=== PATIENT | female | born 1955 | race Caucasian/White ===

== ENCOUNTER 2017-10-31 05:35 | Inpatient (IN) | payer MEDICAID ==
[~2017-10-31] VITALS: Ht 121.9 cm; Wt 62.6 kg
[2017-10-31 05:40] VITALS: BP 131/57
--- NOTE | 2017-10-31 05:44 | NUR ---
Patient ambulated to bed 4 with family. RN evaluating patient at bedside.
--- NOTE | 2017-10-31 05:48 | NUR ---
pt came in with c/o abdominal distention and edema to the lower extremeties. pt has bruising on the middle of her back on both right and left side. she also has an open wound on the right leg below the gagnon. pt has a pacemaker. pt stated she had paracentisis done one year ago. family at bedside. . DENIES N/V/D; SKIN IS PINK/WARM/DRY; AAOX4 WITH EVEN AND STEADY GAIT; LUNGS CLEAR BL; HR EVEN AND REGULAR; PT DENIES ANY FEVER, CP, SOB, OR COUGH AT THIS TIME; PATIENT STATES PAIN OF 0/10 AT THIS TIME; VSS; PATIENT POSITIONED FOR COMFORT; HOB ELEVATED; BEDRAILS UP X2; BED DOWN. ER MD MADE AWARE OF PT STATUS.
--- NOTE | 2017-10-31 05:55 | NUR ---
Patient being evaluated by physician at bedside, with orders and carried out
[2017-10-31] MEDS ORDERED: FURO-570 PO (06:35)
[2017-10-31] MEDS ORDERED: POTA8TER12 PO (06:35)
[2017-10-31] MEDS ORDERED: ASPI81CT89 PO (06:35)
[2017-10-31 06:36] LABS: BASOPHILS % (AUTO) 0.3 % (0.0-2.0); EOSINOPHILS # (AUTO) 0.2 K/uL (0-0.4); EOSINOPHILS % (AUTO) 4.1 % (0.0-4.0); HEMATOCRIT 29.7 % (36-48); HEMOGLOBIN 9.8 g/dL (12.0-16.0); LYMPHOCYTES # (AUTO) 0.6 K/uL (2.5-16.5); LYMPHOCYTES % (AUTO) 12.1 % (20.5-51.1); MEAN CORPUSCULAR HEMOGLOBIN 29 pg (27-31); MEAN CORPUSCULAR HGB CONC 33 g/dL (33-37); MEAN CORPUSCULAR VOLUME 87.2 fL (80-94); MONOCYTES # (AUTO) 0.5 K/uL (0.8-1.0); MONOCYTES % (AUTO) 10.4 % (1.7-9.3); NEUTROPHILS # (AUTO) 3.3 K/uL (1.8-7.7); NEUTROPHILS % (AUTO) 73.1 % (42.2-75.2); PLATELET COUNT (AUTO) 131 K/uL (140-450); RED BLOOD CELL COUNT(AUTO) 3.41 MIL/uL (4.20-5.40); RED CELL DISTRIBUTION WIDTH 15.5 % (11.6-13.7); WHITE BLOOD COUNT (AUTO) 4.6 K/uL (4.8-10.8)
--- NOTE | 2017-10-31 06:39 | NUR ---
hydrotechnical specialist at bedside.
[2017-10-31] MEDS ORDERED: ONDANSETRON 4 MG/2 ML VIAL IVP PRN (06:55)
[2017-10-31] MEDS ORDERED: ALBUTEROL 0.083% 2.5 MG/3 ML NEBU IH PRN (06:55)
[2017-10-31] MEDS ORDERED: HYDROmorphone 1 MG/ML AMP IVP PRN (06:55)
[2017-10-31 06:58] LABS: ANION GAP 15.3 (8-16); CARBON DIOXIDE 27.3 mmol/L (21-32); CREATININE 1.6 mg/dL (0.6-1.3); POTASSIUM 4.6 mmol/L (3.5-5.1)
[2017-10-31 07:03] LABS: PROTHROMBIN TIME 11.8 secs (10.8-13.4)
[2017-10-31 07:07] LABS: TOTAL BILIRUBIN 1.1 mg/dL (0.0-1.0)
--- NOTE | 2017-10-31 07:12 | NUR ---
received report from yane guerin.Patient appears to be resting comfortably in bed. Vital Signs within normal limits. Respirations even and unlabored.will continue to monitor.
--- NOTE | 2017-10-31 07:25 | NUR ---
RECEIVED BEDSIDE REPORT FROM ER NURSE. PATIENT IS AWAKE, ALERT AND ORIENTEDX4. VIETNAMESE SPEAKER. NO SIGNS OF DISTRESS ON ROOM AIR. IV ON R AC 22G. SALINE LOCK. CLEAN, DRY AND INTACT. MRSA SWAB IS DONE. VITALS ARE WITHIN NORMAL LIMITS. ALL ADMIT QUESTIONS ANSWERED. BRUISING ON BACK, PATIENT UNSURE FROM WHAT. R WOOD HAS REDNESS. PATIENT AMBULATES WELL. PATIENT HAS ISSUES URINATING, SHE STATES SHE PEES A LITTLE AND FEELS NOT ALL COMES OUT. BED IN LOW POSITION. CALL LIGHT WITHIN REACH. WILL CONTINUE TO MONITOR THE PATIENT. DAUGHTER AT BEDSIDE
--- NOTE | 2017-10-31 07:27 | NUR ---
transferred pt. Pt report given to Sherron junior at [facility] rm [address].
[2017-10-31 07:30] VITALS: BP 125/56
[2017-10-31] MEDS: HYDROcodone/APAP 5/325 MG 1 TAB TAB PO PRN (09:05)
[2017-10-31] MEDS: POTASSIUM CHLORIDE 8 MEQ TABER PO SCH (09:06)
[2017-10-31] MEDS: FUROSEMIDE 40 MG TAB PO SCH (09:06)
--- NOTE | 2017-10-31 09:08 | NUR ---
ULTRASOUND AT BEDSIDE. ADMINISTERED MEDS. PATIENT TOLERATED WELL. ALSO ADMINISTERED PRN NORCO FOR 6/10 ABD PAIN. WILL CONTINUE TO MONITOR THE PATIENT
--- NOTE | 2017-10-31 11:00 | NUR ---
PATIENT IS SLEEPING. NO SIGNS OF DISTRESS. WILL CONTINUE TO MONITOR THE PATIENT
--- NOTE | 2017-10-31 12:50 | NUR ---
ADMINISTERED PRN PAIN MEDS. PATIENT IS CRYING BECAUSE SHE IS VERY EMOTIONAL THAT SHE HAS A LOT OF HEALTH ISSUES BUT NO ANSWERS. SHE HAS SEEN MANY SPECIALIST BUT STATES SHE GETS NO ANSWERS. SHE HAS PROBLEMS WITH HER KIDNEYS, LUNGS, LIVER, STOMACH AND SHE IS VERY OVERWHELMED. WILL CONTINUE TO MONITOR THE PATIENT
--- NOTE | 2017-10-31 14:52 | NUR ---
PATIENT IS SITTING IN BED. NO SIGNS OF DISTRESS ON ROOM AIR. BED IN LOW POSITION. WILL CONTINUE TO MONITOR THE PATIENT
--- NOTE | 2017-10-31 15:57 | NUR ---
PATIENT IS SLEEPING. NO SIGNS OF DISTRESS ON ROOM AIR. BED IN LOW POSITION. CALL LIGHT WITHIN REACH,. WILL CONTINUE TO MONITOR THE PATIENT
[2017-10-31 16:00] VITALS: BP 112/54
--- NOTE | 2017-10-31 17:52 | NUR ---
PATIENT TOLD SHE IS NOT GETTING THE PARACENTESIS TODAY. SHE VERBALIZED UNDERSTANDING. THERE WERE TOO MANY EMERGENCY PROCEDURES THEY WERE NOT ABLE TO FIT HER IN THE SCHEDULE TODAY. PATIENT SITTING IN BED TALKING TO WILD ANIMAL CARETAKER AND DAUGHTER. NO SIGNS OF DISTRESS OR PAIN AT THIS TIME. WILL CONTINUE TO MONITOR THE PATIENT
--- NOTE | 2017-10-31 18:26 | NUR ---
PATIENT IS SLEEPING. NO SIGNS OF DISTRESS ON ROOM AIR. WILL CONTINUE TO MONITOR PATIENT
--- NOTE | 2017-10-31 19:10 | NUR ---
GAVE BEDSIDE REPORT TO AUTOMATION SPECIALIST NURSE. PATIENT IN STABLE CONDITION.
--- NOTE | 2017-10-31 19:20 | NUR ---
RECEIVED FROM AM RN IN BED AWAKE AND IN BED LAYING DOWN. ABLE TO VERBALIZE SIMPLE NEEDS. FAMILY MEMBER IN HERE VISITING. CARE PLANS FOR THE NIGHT DISCUSSED WITH THEM. CALL LIGHT WITH IN REACH. NO SOB. DENIES ANY PAIN AT THIS TIME. IVF SITE TO [facility]22 INTACT AND NO INFILTRATION. DX. OF ASCITES ABDOMINAL . FOR PARACENTESIS ORDERED.
--- NOTE | 2017-10-31 21:00 | NUR ---
FAMILY MEMBER LEFT. PT. NO COMPLAINT. CALL LIGHT WITH IN REACH.
--- NOTE | 2017-10-31 23:27 | NUR ---
SLEEPING. NO COMPLAINTS DONE. CALL LIGHT WITH IN REACH.
[2017-10-31 23:57] VITALS: BP 122/65
--- NOTE | 2017-11-01 02:00 | NUR ---
SLEEPING. NO RESTLESSNESS. CALL LIGHT WITH IN REACH.
--- NOTE | 2017-11-01 04:52 | NUR ---
NO NOTED VOMITING UP TO THIS TIME. SLEEPING WELL. CALL LIGHT WITH IN REACH.
--- NOTE | 2017-11-01 07:14 | NUR ---
ENDORSED TO THE NEXT RN FOR CONTINUITY OF CARE. SLEEPING. WAKES UP EASILY WHEN CALLED BY NAME. A/O X 4.
--- NOTE | 2017-11-01 07:15 | NUR ---
RECEIVED BEDSIDE REPORT FROM [employer] DYNAMICS MANAGER ARCHITECT. PATIENT IS SLEEPING. NO SIGNS OF DISTRESS ON ROOM AIR. SHE AMBULATES. SKIN IS INTACT. R WOOD HAS REDNESS AND BRUISING/SPIDER ANGIOMA ON TUMMY AND BACK. IV ON L AC 22G SALINE LOCK. CLEAN, DRY AND INTACT. WILL CONTINUE TO MONITOR THE PATIENT. BED IN LOW POSITION. CALL LIGHT WITHIN REACH.
[2017-11-01 07:51] LABS: ANION GAP 15.6 (8-16); CARBON DIOXIDE 26.7 mmol/L (21-32); CREATININE 1.9 mg/dL (0.6-1.3); POTASSIUM 4.3 mmol/L (3.5-5.1)
[2017-11-01 07:53] LABS: BASOPHILS % (AUTO) 0.9 % (0.0-2.0); EOSINOPHILS # (AUTO) 0.2 K/uL (0-0.4); EOSINOPHILS % (AUTO) 4.7 % (0.0-4.0); HEMATOCRIT 29.1 % (36-48); HEMOGLOBIN 9.5 g/dL (12.0-16.0); LYMPHOCYTES # (AUTO) 0.6 K/uL (2.5-16.5); LYMPHOCYTES % (AUTO) 14.8 % (20.5-51.1); MEAN CORPUSCULAR HEMOGLOBIN 29 pg (27-31); MEAN CORPUSCULAR HGB CONC 33 g/dL (33-37); MEAN CORPUSCULAR VOLUME 87.6 fL (80-94); MONOCYTES # (AUTO) 0.4 K/uL (0.8-1.0); MONOCYTES % (AUTO) 10.4 % (1.7-9.3); NEUTROPHILS # (AUTO) 2.8 K/uL (1.8-7.7); NEUTROPHILS % (AUTO) 69.2 % (42.2-75.2); PLATELET COUNT (AUTO) 96 K/uL (140-450); RED BLOOD CELL COUNT(AUTO) 3.32 MIL/uL (4.20-5.40); RED CELL DISTRIBUTION WIDTH 15.8 % (11.6-13.7)
[2017-11-01 08:00] VITALS: BP 119/58
--- NOTE | 2017-11-01 08:56 | NUR ---
PATIENT IS AWAKE. COMPLAINING THAT SHE HAS NOT BEEN ABLE TO PEE SINCE YESTERDAY. WILL TELL DR WOOD. BUT PATIENT HAS CHRONIC KIDNEY ISSUES. WILL CONTINUE TO MONITOR THE PATIENT. CALLED US TO SEE WHEN PARACENTESIS WILL BE DONE. THEY SAID THEY ARE BUSY AND WILL CALL ME BACK
[2017-11-01] MEDS: FUROSEMIDE 40 MG TAB PO SCH (10:08)
[2017-11-01] MEDS: HYDROcodone/APAP 5/325 MG 1 TAB TAB PO PRN ×2 (10:08→18:53)
[2017-11-01] MEDS: POTASSIUM CHLORIDE 8 MEQ TABER PO SCH (10:08)
--- NOTE | 2017-11-01 10:10 | NUR ---
ADMINISTERED MEDS AND PRN PAIN MED. PATIENT TOLERATED WELL. WILL CONTINUE TO MONITOR THE PATIENT
[2017-11-01 11:16] LABS: PROTHROMBIN TIME 11.7 secs (10.8-13.4)
--- NOTE | 2017-11-01 12:00 | NUR ---
PER TECHNICAL INFORMATION SPECIALIST. PARACENTESIS WILL NOT BE DONE D/T IN [facility]ORE MARK[facility]ER SAID THEY HAVE URGENT CASES. THEY SAID IT WILL BE DONE TOMORROW
--- NOTE | 2017-11-01 13:22 | NUR ---
PATIENT IS SLEEPING. NO SIGNS OF DISTRESS. WILL CONTINUE TO MONITOR THE PATIENT.
[2017-11-01] MEDS ORDERED: DEXT 5% /NACL 0.9% 1,000 ML IV SCH (13:55)
--- NOTE | 2017-11-01 15:00 | NUR ---
PATIENT WITH FAMILY AT BEDSIDE. ENJOYING CONVERSATIONS. DAUGHTER AT BEDSIDE MASSAGING HER FEET. WILL CONTINUE TO MONITOR THE PATIENT. NO SIGNS OF DISTRESS
[2017-11-01 16:00] VITALS: BP 107/63
--- NOTE | 2017-11-01 17:00 | NUR ---
PATIENT STILL ENJOYING TIME W DAUGHTER AND GRAND DAUGHTER. WILL CONTINUE TO MONITOR THE PATIENT, NO COMPLAINTS AT THIS TIME.
--- NOTE | 2017-11-01 18:37 | NUR ---
PATIENT COMPLAINING OF CONSTIPATION. DR MEEK SAID OK TO GIVE MIRALAX, WAITING FOR PHARMACY TO VERIFY.
--- NOTE | 2017-11-01 19:00 | NUR ---
GAVE BEDSIDE REPORT TO SHIPWRIGHT APPRENTICE NURSE. PATIENT IN STABLE CONDITION. Addendum: 11/01/17 at 1922 by Sherron Brewer RN ENDORSED PAIN REASSESSMENT TO SHIPWRIGHT APPRENTICE NURSE
[2017-11-01] MEDS: POLYETHYLENE GLYCOL 17 GM/PKT PO SCH (19:28)
--- NOTE | 2017-11-01 19:30 | NUR ---
ADMINISTERED NEEDED DOSE FOR MIRALAX. PATIENT TOLERATED WELL. REMOVED YESTERDAYS DOSE FROM [facility] BECAUSE THEY DID NOT HAVE TODAYS DOSE.
--- NOTE | 2017-11-01 19:31 | NUR ---
RECEIVED PATIENT AWAKE LYING ON BED. PATIENT FRENCH SPEAKING ,AA0X4. PATIENT WAS AMBULATORY, BED IN LOW POSITION. EXPLAINED TO PATIENT THE PLAN OF CARE THROUGH PHARMACY OPERATIONS SPECIALIST. CALL LIGHT WITHIN REACH. WILL CONTINUE TO MONITOR.
--- NOTE | 2017-11-01 21:00 | NUR ---
V/S TAKEN AND RECORDED. MEDICATION GIVEN ORDERED.ENCOURAGED PATIENT TO ELEVATE HER LEGS AND VERBALIZED UNDERSTANDING. NO S/S OF DISTRESS NOTED AT THIS TIME.
[2017-11-01] MEDS: FUROSEMIDE 20 MG/2 ML VIAL IVP SCH (21:09)
--- NOTE | 2017-11-01 23:55 | NUR ---
EXPLAINED TO PATIENT THAT PROCEDURE NEED TO BE DONE TOMORROW .NPO POST MIDNIGHT AND VERBALIZED UNDERSTANDING. SIGN FOR NPO POSTED BY THE DOOR.
[2017-11-02] VITALS: BP 121/61
--- NOTE | 2017-11-02 | NUR ---
V/S TAKEN AND RECORDED. PATIENT ASLEEP ON BED IN COMFORTABLE POSITION. ALL NEEDS ATTENDED. CALL LIGHTS WITHIN REACH. BED IN LOW POSITION.
--- NOTE | 2017-11-02 02:10 | NUR ---
SEEN PATIENT RESTING COMFORTABLY ON BED WITH LEG ELEVATED ON TOP OF THE PILLOW FOR VENOUS RETURN. CALL LIGHT WITHIN REACH. NO S/S OF DISTRESS NOTE AT THIS TIME.
--- NOTE | 2017-11-02 05:15 | NUR ---
SEEN PATIENT ASLEEP COMFORTABLY WITH CALL LIGHT WITHIN REACH. NO S/S OF DISTRESS NOTED A THIS TIME. WILL CONTINUE TO MONITOR.
--- NOTE | 2017-11-02 07:07 | NUR ---
ENDORSEMENT GIVEN AT BEDSIDE TO AM SHIFT NURSE FOR CONTINUITY OF CARE. PATIENT IN STABLE CONDITION.
--- NOTE | 2017-11-02 07:08 | NUR ---
RECEIVED REPORT FROM AIR DEFENCE OFFICER NURSE. PATIENT LYING DOWN IN BED SLEEPING, AROUSABLE BY VOICE. NO DISTRESS NOTED. PAIN WITHIN TOLERABLE AT THIS TIME. AAOX4, CALM, COOPERATIVE, SKIN COLOR APPROPRIATE TO ETHNICITY. HAS RIGHT WOOD REDNESS NOTED, HOWEVER, SKIN IS INTACT. RESPIRATIONS EVEN, UNLABORED, ON ROOM AIR. ABDOMEN SOFT, ASCITES NOTED. LUNGS CTA ON ALL LOBES. IV SITE INTACT, PATENT, AND ON SALINE LOCK. REVIEWED PLAN OF CARE WITH PATIENT. PATIENT VERBALIZED UNDERSTANDING. SAFETY MEASURES IN PLACE, CALL LIGHT WITHIN REACH. WILL CONTINUE TO MONITOR.
[2017-11-02 07:33] LABS: BASOPHILS % (AUTO) 1.1 % (0.0-2.0); EOSINOPHILS # (AUTO) 0.2 K/uL (0-0.4); EOSINOPHILS % (AUTO) 5.2 % (0.0-4.0); HEMATOCRIT 28.3 % (36-48); HEMOGLOBIN 9.3 g/dL (12.0-16.0); LYMPHOCYTES # (AUTO) 0.6 K/uL (2.5-16.5); LYMPHOCYTES % (AUTO) 15.1 % (20.5-51.1); MEAN CORPUSCULAR HEMOGLOBIN 29 pg (27-31); MEAN CORPUSCULAR HGB CONC 33 g/dL (33-37); MEAN CORPUSCULAR VOLUME 87.2 fL (80-94); MONOCYTES # (AUTO) 0.4 K/uL (0.8-1.0); MONOCYTES % (AUTO) 10.7 % (1.7-9.3); NEUTROPHILS # (AUTO) 2.5 K/uL (1.8-7.7); NEUTROPHILS % (AUTO) 67.9 % (42.2-75.2); PLATELET COUNT (AUTO) 93 K/uL (140-450); RED BLOOD CELL COUNT(AUTO) 3.25 MIL/uL (4.20-5.40); RED CELL DISTRIBUTION WIDTH 15.7 % (11.6-13.7); WHITE BLOOD COUNT (AUTO) 3.7 K/uL (4.8-10.8)
[2017-11-02 08:00] VITALS: BP 118/55
[2017-11-02 08:26] LABS: ALBUMIN 3.8 g/dL (3.4-5.0); ANION GAP 12.1 (8-16); CARBON DIOXIDE 26.4 mmol/L (21-32); POTASSIUM 4.5 mmol/L (3.5-5.1); TOTAL BILIRUBIN 1.1 mg/dL (0.0-1.0)
[2017-11-02] MEDS: FUROSEMIDE 20 MG/2 ML VIAL IVP SCH (09:00)
--- NOTE | 2017-11-02 09:19 | NUR ---
PATIENT HAS BEEN SCREENED AND CATEGORIZED HIGH NUTRITION RISK. PATIENT WILL BE SEEN WITHIN 1-2 DAYS OF ADMISSION. 11/02/[address]
[2017-11-02] MEDS: POTASSIUM CHLORIDE 8 MEQ TABER PO SCH (09:27)
[2017-11-02] MEDS: POLYETHYLENE GLYCOL 17 GM/PKT PO SCH (09:27)
--- NOTE | 2017-11-02 09:31 | NUR ---
PATIENT SITTING IN BED TALKING WITH FAMILY MEMBER AT BEDSIDE. NO DISTRESS NOTED. PAIN WITHIN TOLERABLE. SCHEDULED MEDICATIONS DUE GIVEN. LASIX IV WITHHELD DUE TO DECREASED BP AND PATIENT TO GET PARACENTESIS LATER TODAY. SAFETY MEASURES IN PLACE, CALL LIGHT WITHIN REACH. WILL CONTINUE TO MONITOR.
--- NOTE | 2017-11-02 10:46 | NUR ---
PATIENT LYING IN BED SLEEPING, AROUSABLE BY VOICE. FAMILY MEMBER AT BEDSIDE. CALLED RADIOLOGY ABOUT PARACENTESIS, RADIOLOGY TO CALL MD AND CALL NURSE BACK UPON KNOWING TIME FOR PARACENTESIS. SAFETY MEASURES IN PLACE, CALL LIGHT WITHIN REACH. WILL CONTINUE TO MONITOR.
--- NOTE | 2017-11-02 13:32 | NUR ---
DR. MONREAL AT BEDSIDE WITH ULTRASOUND READY TO PERFORM US GUIDED PARACENTESIS. TIMEOUT PROCESS COMPLETED, ALL CONSENT FORMS SIGNED. SAFETY MEASURES IN PLACE, WILL CONTINUE TO MONITOR.
--- NOTE | 2017-11-02 14:02 | NUR ---
11/02/17 RD INITIAL ASSESSMENT COMPLETED PLEASE REFER TO NUTRITION ASSESSMENT UNDER CARE ACTIVITY FOR ESTIMATED NUTRITIONAL NEEDS. 1. CONTINUE CARDIAC DIET TOLERATED 2. RECOMMEND RENAL AND CARDIAC DIET 3. PROVIDED NUTRITION EDUCATION FOR CIRRHOSIS 4. RD TO FOLLOW-UP 5-7 DAYS, LOW RISK ROBERT KIMBROUGH, RD
--- NOTE | 2017-11-02 14:07 | NUR ---
FAXED INITIAL REVIEW TO [facility] [phone] PHONE PRIYA [phone]
[2017-11-02] MEDS: HYDROcodone/APAP 5/325 MG 1 TAB TAB PO PRN (15:58)
--- NOTE | 2017-11-02 15:58 | NUR ---
PATIENT COMPLAINS OF ABDOMINAL PAIN, NORCO GIVEN PER MD ORDERS. CONDITION UNCHANGED. SAFETY MEASURES IN PLACE, CALL LIGHT WITHIN REACH. WILL CONTINUE TO MONITOR.
[2017-11-02 16:00] VITALS: BP 125/58
--- NOTE | 2017-11-02 18:00 | NUR ---
PATIENT SITTING IN BEDSIDE CHAIR TALKING WITH FAMILY MEMBERS AT BEDSIDE. NO DISTRESS NOTE. DENIES ANY PAIN. SAFETY MEASURES IN PLACE, CALL LIGHT WITHIN REACH. WILL CONTINUE TO MONITOR.
--- NOTE | 2017-11-02 19:25 | NUR ---
GAVE REPORT TO BUTTON TUFTING MACHINE OPERATOR NURSE FOR CONTINUITY OF CARE. PATIENT IN STABLE CONDITION.
--- NOTE | 2017-11-02 19:26 | NUR ---
RECEIVED REPORT FROM DAYSHIFT NURSE AT BEDSIDE FOR CONTINUITY OF CARE. PT AAOX4 KINYARWANDA SPEAKING. IV NOTED LAC 22G SALINE LOCK. PT IS AMBULATORY. SKIN HAS R WOOD LOWER SCAB. BLE PITTING EDEMA +1. NPO AFTER MIDNIGHT FOR PARACENTESIS TOMORROW. BED LOWERED CALL LIGHT WITHIN REACH WILL CONTINUE TO MONITOR.
[2017-11-02] MEDS ORDERED: ALUMINUM HYD/MAG/SIMETHICONE 30 ML UDC PO PRN (20:00)
[2017-11-02] MEDS ORDERED: FUROSEMIDE 20 MG/2 ML VIAL IVP SCH (21:00)
[2017-11-03] VITALS: BP 123/76
--- NOTE | 2017-11-03 07:22 | NUR ---
ENDORSED REPORT TO DAYSHIFT NURSE AT BEDSIDE FOR CONTINUITY OF CARE.
--- NOTE | 2017-11-03 07:23 | NUR ---
RECEIVED REPORT FROM FIRST DYER NURSE, PT IS RESTING IN BED, SEMI FOWLERS POSITION, AAOX4, AMBULATORY, PT HAS IV ON HER LEFT AC, PATENT, INTACT, FLUSHING WELL, NO S/S OF RESPIRATORY DISTRESS OR DISCOMFORT NOTED, PT HAS BILATERAL PITTING EDEMA, DISCUSSED PLAN OF CARE WITH PT, PT VERBALIZED UNDERSTANDING, SAFETY/FALL PRECAUTIONS ARE IN PLACE, CALL LIGHT WITHIN REACH, WILL CONTINUE TO MONITOR.
[2017-11-03 07:27] LABS: EOSINOPHILS # (AUTO) 0.2 K/uL (0-0.4); EOSINOPHILS % (AUTO) 5.3 % (0.0-4.0); HEMATOCRIT 27.6 % (36-48); HEMOGLOBIN 8.9 g/dL (12.0-16.0); LYMPHOCYTES # (AUTO) 0.5 K/uL (2.5-16.5); LYMPHOCYTES % (AUTO) 14.4 % (20.5-51.1); MEAN CORPUSCULAR HEMOGLOBIN 28 pg (27-31); MEAN CORPUSCULAR HGB CONC 32 g/dL (33-37); MEAN CORPUSCULAR VOLUME 87.2 fL (80-94); MONOCYTES # (AUTO) 0.4 K/uL (0.8-1.0); MONOCYTES % (AUTO) 10.2 % (1.7-9.3); NEUTROPHILS # (AUTO) 2.6 K/uL (1.8-7.7); NEUTROPHILS % (AUTO) 69.1 % (42.2-75.2); RED BLOOD CELL COUNT(AUTO) 3.17 MIL/uL (4.20-5.40); RED CELL DISTRIBUTION WIDTH 15.6 % (11.6-13.7); WHITE BLOOD COUNT (AUTO) 3.8 K/uL (4.8-10.8)
[2017-11-03 07:37] LABS: PLATELET COUNT (AUTO) 94 K/uL (140-450)
[2017-11-03 07:46] LABS: ALBUMIN 3.7 g/dL (3.4-5.0); ANION GAP 13.5 (8-16); CARBON DIOXIDE 26.8 mmol/L (21-32); CREATININE 1.8 mg/dL (0.6-1.3); POTASSIUM 4.3 mmol/L (3.5-5.1)
[2017-11-03 08:00] VITALS: BP 110/55
[2017-11-03] MEDS: POLYETHYLENE GLYCOL 17 GM/PKT PO SCH (08:35)
[2017-11-03] MEDS: POTASSIUM CHLORIDE 8 MEQ TABER PO SCH (08:35)
[2017-11-03] MEDS ORDERED: FUROSEMIDE 20 MG/2 ML VIAL IVP SCH (09:00)
--- NOTE | 2017-11-03 09:30 | NUR ---
PT SLEEPING IN BED AT THIS TIME, CALL LIGHT IS WITHIN REACH.
--- NOTE | 2017-11-03 11:15 | NUR ---
PT RESTING IN BED, NO S/S OF DISTRESS NOTED, CALL LIGHT WITHIN REACH, PATIENT'S DAUGHTER IS AT BEDSIDE.
--- NOTE | 2017-11-03 13:07 | NUR ---
FAXED CONCURRENT REVIEW TO [facility] [phone] PHONE PRIYA [phone]
--- NOTE | 2017-11-03 13:28 | NUR ---
PT TAKEN OFF UNIT TO HAVE PARACENTESIS DONE. PT LEFT IN STABLE CONDITION.
[2017-11-03 15:00] VITALS: BP 111/54
--- NOTE | 2017-11-03 15:00 | NUR ---
PT RETURNED TO UNIT VIA WHEELCHAIR, PT IS AAOX4, AMBULATORY, NO S/S OF RESPIRATORY DISTRESS OR DISCOMFORT NOTED, DAUGHTER IS AT PATIENT'S BEDSIDE. Addendum: 11/03/17 at 1555 by Kari Seth RN 2.5 LITER OUTPUT FROM PARACENTESIS.
== END 2017-11-03 15:30 | disposition home or self-care (01) ==
LOC: MED 05:35 → MTU 07:01 → OBSVTOIN 15:00
PROVIDERS: ADMIT Hospitalist; ATTEND Hospitalist
PROC: 0W9G30Z Drainage of Peritoneal Cavity with Drainage Device, Percutaneous Approach (ICD-10-PCS; 2017-10-31)
PROC: 0W9G30Z Drainage of Peritoneal Cavity with Drainage Device, Percutaneous Approach (ICD-10-PCS; principal; 2017-11-03)
DX: R18.8 Other ascites (principal); D61.818 Other pancytopenia; K72.90 Hepatic failure, unspecified without coma; I50.9 Heart failure, unspecified; I13.0 Hypertensive heart and chronic kidney disease with heart failure and stage 1 through stage 4 chronic kidney disease, or unspecified chronic kidney disease; K74.60 Unspecified cirrhosis of liver; N18.9 Chronic kidney disease, unspecified; Z95.0 Presence of cardiac pacemaker; Z79.82 Long term (current) use of aspirin; Z90.710 Acquired absence of both cervix and uterus
CPT/HCPCS: 49083; 99285; G0378; 36415; 71045; 76705; 80048; 80053; 82140; 83605; 83880; 85025; 85610; 85730; 87040; 87081; J1170; J1940; J2001; J2405; Q0092

== ENCOUNTER 2017-11-20 06:51 | Day surgery (SDC) | payer MEDICAID ==
[~2017-11-20] VITALS: Ht 152.4 cm; Wt 54.4 kg
[~2017-11-20 06:51] MED LIST: ASPI81CT89 PO; FURO-570 PO; POTA8TER12 PO
[2017-11-20 13:42] LABS: GLUCOSE,BODY FLUID 95 mg/dL
[2017-11-20 14:02] LABS: APPEARANCE,SPUN,BODY FLUID CLEAR (CLEAR); APPEARANCE,UNSPUN,BODY FLUID CLOUDY (CLEAR); COLOR,BODY FLUID YELLOW (LT YELLOW); SPECIMENTYPE,BODY FLUID PERITPNEAL; TOTAL VOLUME,BODY FLUID 25 mL; WBC, BODY FLUID 20 /cu. mm.
[2017-11-20 14:03] LABS: POLYNUCLEAR, BODY FLUID 0 %; RBC, BODY FLUID 21600 /cu. mm.
== END 2017-11-20 11:20 | disposition home or self-care (01) ==
LOC: MDS 06:51 → MMU 06:52 → MDS 11:20
PROVIDERS: ATTEND Internal Medicine Gastroenterology
DX: R18.8 Other ascites (principal); K74.60 Unspecified cirrhosis of liver; K72.90 Hepatic failure, unspecified without coma; I13.0 Hypertensive heart and chronic kidney disease with heart failure and stage 1 through stage 4 chronic kidney disease, or unspecified chronic kidney disease; N18.9 Chronic kidney disease, unspecified; I50.9 Heart failure, unspecified; Z95.0 Presence of cardiac pacemaker; F15.90 Other stimulant use, unspecified, uncomplicated; Z90.710 Acquired absence of both cervix and uterus; Z79.82 Long term (current) use of aspirin; Z79.899 Other long term (current) drug therapy
CPT/HCPCS: 36415; 49083; 76705; 82945; 84157; 87070; 87075; 87205; 89051; Q0092

== ENCOUNTER 2018-03-22 05:50 | Day surgery (SDC) | payer MEDICAID ==
[~2018-03-22] VITALS: Ht 152.4 cm; Wt 53.1 kg
[2018-03-22] MEDS ORDERED: METO5TAB9 PO (07:05)
[2018-03-22] MEDS ORDERED: fentaNYL 0.05 MG/ML VIAL ONE (07:41)
[2018-03-22] MEDS ORDERED: MIDAZOLAM 2 MG/2 ML VIAL ONE (07:41)
[2018-03-22] MEDS ORDERED: MIDAZOLAM 2 MG/2 ML VIAL IVP ONE (10:25)
== END 2018-03-22 08:40 | disposition home or self-care (01) ==
LOC: MMU 05:50 → MDS 05:50
PROVIDERS: ATTEND Internal Medicine Gastroenterology
DX: K31.9 Disease of stomach and duodenum, unspecified (principal); K74.69 Other cirrhosis of liver; F15.90 Other stimulant use, unspecified, uncomplicated; Z79.899 Other long term (current) drug therapy; Z79.82 Long term (current) use of aspirin; Z95.0 Presence of cardiac pacemaker
CPT/HCPCS: 43235; J2250; J3010